=== PATIENT | female | born 1940 | race Native Hawaiian/Other Pacific Islander ===

== ENCOUNTER 2017-02-03 09:32 | Day surgery (SDC) | payer MEDICARE, OTHER ==
[2017-02-02 13:37] VITALS: BMI 29.9
[~2017-02-03 09:32] MED LIST: Carbachol 0.01% IO ONE; Chondroitin/Hyaluronate Opth Syringe KIT (0.55 ml-0.5 ml) IO ONE; Hyaluronidase Human, Recombi 150 U/ML VIAL ONE; Lactated Ringer's 500 ML IV ONE; Lidocaine 2% Inj (20ml) ONE; Phenylephrine 2.5% Opht Soln OS SCH; Povidone Iodine Ophthalmic 5% Soln ONE; Tetracaine 0.5% Ophth (OR ONLY) ONE; Tobramycin/Dexamethasone OPHT OINT ONE; Tropicamide 1% Opht SOLUTION OS SCH
[2017-02-03] MEDS ORDERED: Lactated Ringer's 1,000 ML IV ONE (10:15)
[2017-02-03] MEDS ORDERED: Propofol 10 mg/ml Inj (20 ML) ONE (11:21)
[2017-02-03 12:53] VITALS: BP 121/50; PULSE 77; RESP 16; TEMP 97.8; O2SAT 98
--- NOTE | 2017-02-04 12:20 | OP ---
PROCEDURE DATE: 02/03/2017 PREOPERATIVE DIAGNOSIS: Hypermature cataract, left eye. POSTOPERATIVE DIAGNOSIS: Hypermature cataract, left eye. OPERATIVE PROCEDURE: Complex cataract surgery, left eye using Vision Blue. SURGEON: Dr. Christian Mclaughlin. ANESTHESIA: Retrobulbar block. COMPLICATIONS: None. ESTIMATED BLOOD LOSS: 0. ANESTHESIA: Retrobulbar block. PROCEDURE: The patient was brought to the operating room and properly identified. Anesthesia staff a dministered intravenous sedation and retrobulbar block was given to the surgical eye. The patient wa s then prepped and draped in the usual sterile fashion. Attention was turned to the surgical eye. A lid speculum was placed into interpalpebral fissure. Si tting temporally two paracentesis incisions were made. The anterior chamber was filled with viscoela stic and a triplanar clear corneal incision was made. Using a cystitome anterior capsular leaflet wa s created. Utrata forceps were used to create a continuous curvilinear capsulorrhexis. Balanced godfrey t solution on a cannula was used to hydrodissect and hydrodelineate the lens. The lens was then phac oemulsified with no complications. Automated irrigation and aspiration was used to remove the cortex . Viscoelastic was used to deepen the anterior chamber. The lens was placed in the capsular bag. A utomated irrigation and aspiration was used to remove the viscoelastic. The anterior chamber was bora led with Miochol. The wounds were hydrated with balanced salt solution. There was noted to be no le ak at the end of the case and the lens was well positioned. The lid speculum was removed. The eye w as given antibiotics and steroids and covered with a patch and shield. The patient was returned to [facility] recovery room in stable condition. ADDENDUM Due to hyper maturity of the cataract, Vision Blue was used to highlight the anterior capsule. Caref ul continuous curvilinear capsulorrhexis was then created. There were no complications. Christian Mclaughlin MD cc: [id number] TT: 02/04/2017 12:19:32 [place]
== END 2017-02-03 12:53 | disposition home or self-care (01) ==
LOC: C.SDS 09:32
PROVIDERS: ATTEND Ophthalmology
DX: E11.36 Type 2 diabetes mellitus with diabetic cataract (principal); I10 Essential (primary) hypertension; E78.5 Hyperlipidemia, unspecified; M10.9 Gout, unspecified; J30.9 Allergic rhinitis, unspecified; Z87.891 Personal history of nicotine dependence; Z98.890 Other specified postprocedural states; Z90.49 Acquired absence of other specified parts of digestive tract; Z79.84 Long term (current) use of oral hypoglycemic drugs; Z79.82 Long term (current) use of aspirin; Z79.899 Other long term (current) drug therapy

== ENCOUNTER 2017-05-05 07:41 | Day surgery (SDC) | payer MEDICARE, OTHER ==
[2017-02-02 13:37] VITALS: BMI 29.9
[~2017-05-05 07:41] MED LIST changes: +Phenylephrine 2.5% Opht Soln OD SCH; -Phenylephrine 2.5% Opht Soln OS SCH; +Tropicamide 1% Opht SOLUTION OD SCH; -Tropicamide 1% Opht SOLUTION OS SCH
[2017-05-05 08:20] VITALS: RESP 20; TEMP 97; O2SAT 97
[2017-05-05] MEDS ORDERED: HYDROmorphone 0.5 mg/0.5 ml ISec IVP PRN (09:07)
[2017-05-05] MEDS ORDERED: Midazolam 2 MG/2 ML VIAL ONE (09:27)
[2017-05-05] MEDS ORDERED: Propofol 10 mg/ml Inj (20 ML) ONE (09:41)
[2017-05-05 10:48] VITALS: BP 139/72
[2017-05-05 10:49] VITALS: PULSE 73
--- NOTE | 2017-05-06 11:54 | OP ---
PROCEDURE DATE: 05/05/2017 PREOPERATIVE DIAGNOSIS: Mature nuclear cataract, right eye. POSTOPERATIVE DIAGNOSIS: Mature nuclear cataract, right eye. OPERATIVE PROCEDURE: Cataract extraction with lens implant, right eye. ATTENDING: Dr. Christian Mclaughlin ANESTHESIA: Retrobulbar block. PROCEDURE: The patient was brought to the operating room and properly identified. Anesthesia staff a dministered intravenous sedation and retrobulbar block was given to the surgical eye. The patient wa s then prepped and draped in the usual sterile fashion. Attention was turned to the surgical eye. A lid speculum was placed into interpalpebral fissure. Si tting temporally two paracentesis incisions were made. The anterior chamber was filled with viscoela stic and a triplanar clear corneal incision was made. Using a cystitome anterior capsular leaflet wa s created. Utrata forceps were used to create a continuous curvilinear capsulorrhexis. Balanced godfrey t solution on a cannula was used to hydrodissect and hydrodelineate the lens. The lens was then phac oemulsified with no complications. Automated irrigation and aspiration was used to remove the cortex . Viscoelastic was used to deepen the anterior chamber. The lens was placed in the capsular bag. A utomated irrigation and aspiration was used to remove the viscoelastic. The anterior chamber was bora led with Miochol. The wounds were hydrated with balanced salt solution. There was noted to be no le ak at the end of the case and the lens was well positioned. The lid speculum was removed. The eye w as given antibiotics and steroids and covered with a patch and shield. The patient was returned to [facility] recovery room in stable condition. Christian Mclaughlin MD cc: [id number] TT: 05/06/2017 11:52:55 en
== END 2017-05-05 10:45 | disposition home or self-care (01) ==
LOC: C.SDS 07:41
PROVIDERS: ATTEND Ophthalmology
DX: H25.11 Age-related nuclear cataract, right eye (principal)
CPT/HCPCS: 66984; 82948; J2250; J2704; J3010; J3470; J7120